=== PATIENT | female | born 1930 | race Caucasian/White ===

== ENCOUNTER 2019-02-12 18:52 | Inpatient (IN) | payer MEDICARE ==
[~2019-02-12] VITALS: Ht 162.6 cm; Wt 57.2 kg
[2019-02-12 00:30] VITALS: BP 67/46
--- NOTE | 2019-02-12 19:14 | NUR ---
PT A/OX1, BIB [facility] FROM PRIVATE RESIDENCE, C/O GENERALIZED WEAKNESS, N/V/D SINCE THIS AM, HYPOTENSION. PER CREDIT COMPLIANCE OFFICER'S REPORT, PT'S CAREGIVER WAS UNABLE TO PROVIDE HX/MED LIST. PT PRESENTS W/ HYPOTENSION 68/50, HR 99. PT IS PALE, DRY, BUT ALERT. NO FACIAL DROOP, SPEECH IS CLEAR, NO HEMILATERAL WEAKNESS. PT DOES NOT APPEAR TO BE IN ANY APPARENT DISTRESS.
[2019-02-12] MEDS ORDERED: IV NORMAL SALINE 1000 ML BAG IV ONE (19:15)
--- NOTE | 2019-02-12 19:17 | NUR ---
SHIFT REPORT GIVEN TO KAYCE Brownlee RN.
--- NOTE | 2019-02-12 19:30 | NUR ---
PATIENT FAMILY AT BEDSIDE. INFORMATION UUPDATED. PATIENT WITH H/O DEMENTIA, MORE CONFUSED FOR HARINDER APST 2 DAYS, VOMITING SINCE YESTERDAY 12PM. PATIENT DONE NOT APPEAR TO BE IN DISTRESS AT THIS TIME. PATIENT IS AWAKE AND ALERT, TALKIING TO FAMILY AT THIS TIME.
[2019-02-12] MEDS ORDERED: OMEP20CA10 PO (19:37)
[2019-02-12] MEDS ORDERED: LEVO75TA7 PO (19:37)
[2019-02-12] MEDS ORDERED: MIRT15TA PO (19:37)
[2019-02-12] MEDS ORDERED: CITA10TA17 PO (19:37)
[2019-02-12 19:44] LABS: CARBON DIOXIDE 18 mmol/L (21-32); CHLORIDE 102 mmol/L (98-107); CREATININE 2.2 mg/dL (0.6-1.3); GLUCOSE 231 mg/dL (74-106); POTASSIUM 5.1 mmol/L (3.5-5.1); UREA NITROGEN, BLOOD 47 mg/dL (7-18)
[2019-02-12 19:45] LABS: BASOPHILS # (AUTO) 0.1 K/uL (0.0-8.0); LYMPHOCYTES % (AUTO) 2.8 % (20.5-51.5)
[2019-02-12 19:46] LABS: BASOPHILS % (AUTO) 0.2 % (0.0-2.0); HEMATOCRIT 31.5 % (31.2-41.9); HEMOGLOBIN 9.7 g/dL (10.9-14.3); MEAN CORPUSCULAR HEMOGLOBIN 21.4 uug (24.7-32.8); MEAN CORPUSCULAR HGB CONC 31 g/dL (32.3-35.6); MEAN CORPUSCULAR VOLUME 69.7 fL (75.5-95.3); MONOCYTES # (AUTO) 2.1 K/uL (2.0-10.0); NEUTROPHILS # (AUTO) 31.9 K/uL (1.8-8.9); PLATELET COUNT (AUTO) 445 K/uL (179-408); RED BLOOD CELL COUNT(AUTO) 4.53 MIL/uL (3.63-4.92)
[2019-02-12 19:55] LABS: ALANINE AMINOTRANSFERASE 31 U/L (14-59); ALKALINE PHOSPHATASE 108 U/L (50-136); ASPARTATE AMINOTRANSFERASE 134 U/L (15-37); BILIRUBIN,DIRECT 0.1 mg/dL (0.0-0.2); BILIRUBIN,TOTAL 0.5 mg/dL (0.2-1.0); LIPASE 198 U/L (73-393); TOTAL PROTEIN, SERUM 6.7 g/dL (6.4-8.2)
[2019-02-12 20:10] LABS: BAND % (MANUAL) 9 % (0-10); LYMPHOCYTES % (MANUAL) 4 % (20-40); MONOCYTES % (MANUAL) 9 % (2-10); NEUTROPHILS % (MANUAL) 78 % (42-75)
[2019-02-12] MEDS ORDERED: VANCOMYCIN IV 1,000 MG in IV DEXTROSE 5% 250 ML IV ONE (20:30)
[2019-02-12] MEDS ORDERED: PIPERACILLIN SODIUM/TAZOBACTAM 3.375 G in IV DEXTROSE 5% 50 ML IV ONE (20:30)
[2019-02-12] MEDS ORDERED: PIPERACILLIN/TAZOBACTAM/D5W 50 ML IV ONE (20:51)
[2019-02-12 21:09] LABS: *BILIRUBIN,URIN 1+ (NEGATIVE); *BLOOD, URINE 2+ (NEGATIVE); *CLARITY,URINE CLOUDY (CLEAR); *COLOR,URINE YELLOW (YELLOW); *KETONES,URINE TRACE (NEGATIVE); *UROBILINOGEN,URINE 0.2 E.U./dl (NORMAL); LEUKOCYTE ESTERASE ,URINE 1+ (NEGATIVE); NITRITE, URINE NEGATIVE (NEGATIVE); PH,URINE 5.5 (5.0-8.0); UGLUCOSE NEGATIVE (NEGATIVE)
[2019-02-12] MEDS ORDERED: IOHEXOL 300MG/ML 100 ML INFUS..BTL ONE (21:13)
[2019-02-12] MEDS ORDERED: IV NORMAL SALINE 250 ML IV ONE (21:13)
[2019-02-12] MEDS ORDERED: SWABABLE VALVE TRANSFER SET EA MC ONE (21:13)
[2019-02-12 21:20] LABS: BACTERIA,URINE MANY /HPF (NONE SEEN); MUCUS,URINE MODERATE /LPF (0-FEW); SQUAMOUS EPITHELIAL CELL,UR MANY /HPF (NONE SEEN); WBC,URINE 20-50 /HPF (0-3)
[2019-02-12] MEDS ORDERED: VANCOMYCIN IV 200 ML ONE (21:24)
--- NOTE | 2019-02-12 21:29 | NUR ---
REPROT GIVEN TO DOROTHY REESE.
--- NOTE | 2019-02-12 21:35 | NUR ---
Report from DOROTHY DEVRIES. Received pt awake, AxO x2. Family at bedside. Pt has episodes of restlessness and confusion. Pt able to follow simple commands such as blink eyes and squeeze hands. Upper and lower extremities mild weakness. Pt on 2L NC with O2 sat up to 98%. Tele placed and noted to be SR with HR 78. Pt BP 66/42. PIV right AC 22 g running NS BOLUS wide open. PIV on left hand 22 g running VANCO. Abdomen distended, hypoactive in all four quadrants. F/C in place. Assessment completed. Safety precautions initiated. Will continue to monitor closely.
[2019-02-12] MEDS ORDERED: IV NS 1000 ML 1,000 ML IV PRN ×2 (21:49→22:50)
[2019-02-12] MEDS ORDERED: MORPHINE SULFATE 2 MG/1 ML DISP.SYRIN IV PRN (22:00)
[2019-02-12] MEDS ORDERED: ONDANSETRON 4 MG/2 ML VIAL IV PRN (22:00)
[2019-02-12] MEDS ORDERED: PIPERACILLIN/TAZOBACTAM/D5W 50 ML IV SCH (22:00)
[2019-02-12] MEDS ORDERED: Z GUARD REMEDY PASTE 57 GM TUBE TOP PRN (22:00)
[2019-02-12] MEDS ORDERED: IV NS 1000 ML 1,000 ML IV ONE (22:30)
--- NOTE | 2019-02-12 22:50 | NUR ---
Call made to canceling and cutting control clerk DR LANIER regarding low BP readings (SBP 60 - 70s) and elevated lactic acid 13.7. New orders of 1L NS BOLUS wide open, ABG lab draw and lactic acid lab draw after NS BOLUS completed. Continue with plan of care.
[2019-02-12] MEDS: PANTOPRAZOLE SODIUM IV 40 MG in IV DEXTROSE 5% 100 ML IV SCH (23:10)
[2019-02-12] MEDS ORDERED: PANTOPRAZOLE SODIUM 40 MG VIAL ONE (23:12)
--- NOTE | 2019-02-12 23:15 | NUR ---
Unable to obtain ABG after multiple attempts. RN TAY aware and notified.
--- NOTE | 2019-02-12 23:40 | NUR ---
RTs unable to obtain ABG lab draw. Call placed to [email or web address]. Call back from MD LLOYD and states its okay to cancel ABG lab draw. New order of PICC line insertion. Continue to monitor.
--- NOTE | 2019-02-12 23:45 | NUR ---
Call made to tea and spice supervisor regarding PICC line insertion. As per tea and spice supervisor, unable to obtain targeting acquisition officer PICC line RN for insertion. States will be done in the morning.
[2019-02-13] VITALS (21 sets, daily range): BP systolic 0–147; BP diastolic 0–96
--- NOTE | 2019-02-13 00:42 | NUR ---
Pt. admitted to CCU , under care of Dr. LANIER Belongs List completed. DOROTHY REESE TOOK OVER CARE OF THIS PATIENT AT 2130 ON 02/12/19
[2019-02-13] MEDS ORDERED: HEPARIN/D5W DRIP 500 ML IV PRN (01:00)
[2019-02-13] MEDS ORDERED: NOREPINEPHRINE BITARTRATE 8 MG in IV DEXTROSE 5% 500 ML IV PRN (01:00)
[2019-02-13] MEDS ORDERED: NOREPINEPHRINE BITARTRATE 4 MG/4 ML VIAL IV ONE (01:16)
[2019-02-13] MEDS ORDERED: HEPARIN SODIUM,PORCINE 10,000 UNITS/10 ML VIAL INJ ONE (01:45)
[2019-02-13] MEDS ORDERED: HEPARIN SODIUM,PORCINE 5,000 UNITS/ML VIAL ONE (01:58)
--- NOTE | 2019-02-13 02:00 | NUR ---
Call made to cyber security consultant DR DESAI regarding pt condition. Report given. Received order for HEPARIN and LEVOPHED drip and to call family if in agreement to treatment plan. Call made to SYED (son) and discussed MD orders, son okayed to proceed with MD's medication order. MD states to follow HEPARIN protocol for ACS. Continue with plan of care.
[2019-02-13] MEDS ORDERED: HEPARIN SODIUM,PORCINE 5,000 UNITS/ML VIAL IV SCH (02:15)
[2019-02-13] MEDS: PANTOPRAZOLE SODIUM IV 40 MG in IV DEXTROSE 5% 100 ML IV SCH (03:30)
--- NOTE | 2019-02-13 04:00 | NUR ---
LEVOPHED drip titrated, pt remains hypotensive. [employer] notified of the need for PICC line insertion. States PICC line RN not available until the morning. Continue to monitor closely.
--- NOTE | 2019-02-13 04:30 | NUR ---
Paged injection machine operator DR DESAI regarding pt's condition. Discussed HEPARIN DRIP, wants to continue. Also notified of persistent hypotension despite LEVOPHED, new orders received.
[2019-02-13] MEDS ORDERED: SODIUM BICARBONATE 8.4% 50 MEQ/50 ML DISP.SYRIN IV ONE (04:45)
[2019-02-13] MEDS ORDERED: IV NS 1000 ML 1,000 ML IV ONE (04:45)
--- NOTE | 2019-02-13 05:40 | NUR ---
Pt became apneic and bradycardic. Remains hypotensive. Call made to son to inform pt current condition. DNR/DNI status. Confirmed with son no mechanical ventilation, no intubation. Continue to monitor.
--- NOTE | 2019-02-13 05:50 | NUR ---
Pt with agonal rhythm converted to asystole. Pupils fixed and dilated, no corneal reflexes. No audible heart tones, no breath sounds for 1 minute. No palpable pulses. Pt at 0550. Physician and nursing melter supervisor notified.
--- NOTE | 2019-02-13 06:10 | NUR ---
Call made to [facility] regarding pt's condition. As stated per MELISSA, pt is not eligible for organ donation. .
--- NOTE | 2019-02-13 06:30 | NUR ---
Family members at bedside (SON AND DAUGHTER IN LAW). Patient belongings (2 rings) released to family members. Discussed mortuary arrangements. Addendum: 02/13/19 at 0792 by MARY ANN GELLER RN Provided nursing office phone number to son.
[2019-02-13] MEDS ORDERED: LEVOTHYROXINE SODIUM 75 MCG TABLET PO SCH (07:30)
--- NOTE | 2019-02-13 08:20 | NUR ---
At 0800, pt transferred down to [facility] with security. Spoke with Fer (son) on the telephone and made aware. Son already made call to [facility] regarding merchandise pickup/receiving associate of the pt. Awaiting return call for ETA. Per request of son, pt's personal effects (clothes) to be thrown out in the garbage.
--- NOTE | 2019-02-13 08:27 | NUR ---
SELAM Amaya here in the unit. Full report given. HAZMAT TECHNICIAN made aware of pt's expiration.
[2019-02-13] MEDS ORDERED: PANTOPRAZOLE SODIUM 40 MG VIAL IV SCH (09:00)
== END 2019-02-13 05:50 | disposition expired | DRG 871 ==
LOC: ER 18:54 → CCU 22:21 → EDBD 22:21
PROVIDERS: ADMIT Nurse Practitioner Acute Care; ATTEND Nurse Practitioner Acute Care
DX: A41.9 Sepsis, unspecified organism (principal); K55.059 Acute (reversible) ischemia of intestine, part and extent unspecified; R65.21 Severe sepsis with septic shock; N17.0 Acute kidney failure with tubular necrosis; Z66 Do not resuscitate; I21.4 Non-ST elevation (NSTEMI) myocardial infarction; N39.0 Urinary tract infection, site not specified; E44.0 Moderate protein-calorie malnutrition; J98.11 Atelectasis; J90 Pleural effusion, not elsewhere classified; G93.40 Encephalopathy, unspecified; E87.2 Acidosis; K56.1 Intussusception; F03.90 Unspecified dementia, unspecified severity, without behavioral disturbance, psychotic disturbance, mood disturbance, and anxiety; Z74.01 Bed confinement status; E03.9 Hypothyroidism, unspecified; K57.90 Diverticulosis of intestine, part unspecified, without perforation or abscess without bleeding; K56.41 Fecal impaction; K44.9 Diaphragmatic hernia without obstruction or gangrene; K21.9 Gastro-esophageal reflux disease without esophagitis; Z82.49 Family history of ischemic heart disease and other diseases of the circulatory system; Z87.891 Personal history of nicotine dependence; Z90.710 Acquired absence of both cervix and uterus; I25.10 Atherosclerotic heart disease of native coronary artery without angina pectoris; K76.89 Other specified diseases of liver
CPT/HCPCS: 36415; 70030-TC; 71045; 83605; 83690; 85025; 85730; 87040; 87077; 87086; 93005; A4663; C9113; G0378; J1644; J2543; J3370; J3490; J7030; J7050; J7060; Q9967